=== PATIENT | female | born 1945 | race Caucasian/White ===

== ENCOUNTER 2020-07-05 08:23 | Inpatient (IN) | payer OTHER, MEDICARE ==
[~2020-07-05] VITALS: Ht 160 cm; Wt 70.8 kg
[2020-07-05] VITALS (7 sets, daily range): BP systolic 154–170; BP diastolic 65–79
--- NOTE | 2020-07-05 08:30 | NUR ---
ADDRESS: CORRECT PHONE: [phone] EMPLOYER: RETIRED EMERGENCY CONTACT: JAGDISH BLUNT (SPOUSE) PHONE: [phone] SS: [id number]
[2020-07-05] MEDS ORDERED: MAGNESIUM250 M1 PO (09:11)
[2020-07-05] MEDS ORDERED: NORVASC5 M1 PO (09:12)
[2020-07-05] MEDS ORDERED: HYDRALAZINE 2525 M1 PO (09:13)
[2020-07-05] MEDS ORDERED: METFORMIN HCL500 M3 PO (09:13)
[2020-07-05] MEDS ORDERED: COREG25 M1 PO (09:13)
[2020-07-05 09:14] LABS: HEMATOCRIT 27.8 % (37.0-47.0); HEMOGLOBIN 9.2 gm/dL (12.0-15.0); MCH 27.9 pg (26.0-34.0); MCHC 33.2 g/dL (28.0-37.0); MCV 84.2 fL (80.0-100.0); PLATELET COUNT 152 thou/uL (150-400); RDW 16.9 % (10.5-14.5); WBC 7.8 thou/uL (4.0-11.0)
[2020-07-05] MEDS ORDERED: ZOCOR20 MG PO (09:14)
[2020-07-05] MEDS ORDERED: MELOXICAM15 MG PO (09:14)
[2020-07-05] MEDS ORDERED: MICARDIS HCT 81 EAC1 PO (09:14)
[2020-07-05 09:30] LABS: CALCIUM 8.8 mg/dL (8.5-10.1); CREATININE 1.6 mg/dL (0.6-1.0); POTASSIUM 3.6 mmol/L (3.5-5.1)
[2020-07-05 10:21] LABS: ABSOLUTE NEUTROPHILS 5.5 thou/uL (1.4-8.2); ANISOCYTOSIS SLIGHT; ATYPICAL LYMPHS 1 %; LARGE PLATELETS OCCASIONAL; POIKILOCYTOSIS SLIGHT
[2020-07-05 10:56] LABS: URINE BILIRUBIN NEGATIVE (Negative); URINE BLOOD NEGATIVE (Negative); URINE CLARITY CLEAR; URINE COLOR YELLOW; URINE GLUCOSE-RANDOM* NEGATIVE (Negative); URINE KETONES NEGATIVE (Negative); URINE LEUKOCYTES-REFLEX NEGATIVE (Negative); URINE NITRITE-REFLEX NEGATIVE (Negative); URINE PROTEIN (DIPSTICK) NEGATIVE (Negative); URINE SPECIFIC GRAVITY 1.015 (1.005-1.035); URINE UROBILINOGEN 0.2 E.U./dl (0.2-1.0)
[2020-07-05 12:13] LABS: BE(vivo) -2.2 mmol/L (-2 to +3); HCO3 21.6 mmol/L (22.0-26.0); PCO2 33.5 mmHg (35.0-45.0); PO2 71.5 mmHg (80.0-100.0); pH 7.428 (7.360-7.450); sO2 94.9 % (92.0-98.0)
[2020-07-05 15:14] LABS: % SATURATION 4 % (20-39); IRON 11 ug/dL (50-170); TIBC 301 ug/dL (250-450)
[2020-07-05 15:48] LABS: FOLIC ACID 18.7 ng/mL (8.6-58.9)
--- NOTE | 2020-07-05 19:14 | NUR ---
[age] OLD FEMALE ADMITTED TO WEST ROOM 355. PT WAS BROUGHT INTO THE ER PER DUE TO SOA THAT STARTED FRIDAY. PT ALERT AND ORIENTED TIMES FOUR. VSS, O2 2L. PT DENIES PAIN DURING ADMISSION ASSESSMENT. PT UP TO BSC WITH STANDBY ASSIST. PT TOLERATES MEDS AND DINNER. WILL CONTINUE TO MONITOR.
--- NOTE | 2020-07-05 23:29 | NUR ---
ASSUMED CARE OF PATIENT AT 1900. VSS, AFEBRILE. COVID RESULTS NEGATIVE, CLERICAL ASSIGNER, RAILROAD DESIGN CONSULTANT SHAVING MACHINE OPERATOR, DO LOZANO AND RAVINDER COLLINS NOTIFIED. RECIEVED OK TO TAKE OUT OF ENHANCED PRECAUTIONS. LACTIC ACID ELEVATED. WILL START FLUIDS. WORKING TOWARDS POC GOALS.
[2020-07-06 03:15] VITALS: BP 181/91
[2020-07-06 03:21] VITALS: BP 157/82
[2020-07-06 03:38] LABS: CALCIUM 8.5 mg/dL (8.5-10.1); CREATININE 1.4 mg/dL (0.6-1.0); MAGNESIUM 1.2 mg/dL (1.8-2.4); POTASSIUM 3.9 mmol/L (3.5-5.1)
[2020-07-06 03:41] LABS: ABSOLUTE NEUTROPHILS 4.9 thou/uL (1.4-8.2); BASOPHILS 0.1 % (0.0-2.0); HEMATOCRIT 26.1 % (37.0-47.0); HEMOGLOBIN 8.5 gm/dL (12.0-15.0); LYMPHOCYTES 6.8 % (24.0-44.0); MCH 27.7 pg (26.0-34.0); MCHC 32.6 g/dL (28.0-37.0); PLATELET COUNT 119 thou/uL (150-400); POLYS 91.1 % (36.0-66.0); RBC 3.07 mil/uL (4.20-5.00); RDW 17.3 % (10.5-14.5); WBC 5.4 thou/uL (4.0-11.0)
[2020-07-06 05:07] LABS: GLYCOHEMOGLOBIN (HGB A1C) 7.1 % (4.8-5.6)
[2020-07-06 07:12] VITALS: BP 157/80
--- NOTE | 2020-07-06 10:25 | NUR ---
Assumed care at 0700, assessment and vital signs completed per icu protocol. RN will continue to monitor.
--- NOTE | 2020-07-06 10:56 | NUR ---
INITIAL ASSESSMENT: SW reviewed chart and spoke with nursing. Pt was admitted from home due to shortness of air/pneumonia. Pt placed in Enhanced Isolation to r/o COVID-19. Pt's test is negative. Enhanced Isolation precautions discontinued. Pt to transfer to when a room is available. SW placed call to pt's room multiple times. No answer. SW left voice message on pt's cell phone ([phone]). Per chart, pt is alert/orientated x 4 and lives at home with . Prior to admission, pt was independent with ADLs. Pt is currently on 3L of O2 and IV abx/IV steroids. Pt will need therapy evals when able to participate to assist with recommendations for discharge needs. SW to follow up with pt at a later time and assist with discharge planning.
[2020-07-06 11:20] VITALS: BP 128/65
[2020-07-06 16:15] VITALS: BP 144/74
--- NOTE | 2020-07-06 17:48 | NUR ---
ARRIVED FROM 3W, ALERT AND ORIENTED X4. VSS AND ASSESSMENT CHARTED. AND WILL CONTINUE WITH POC.
[2020-07-06 20:12] VITALS: BP 142/69
[2020-07-07] VITALS (7 sets, daily range): BP systolic 131–179; BP diastolic 65–85
--- NOTE | 2020-07-07 08:16 | NUR ---
PT A&O, UP ADLIB TO BR, VSS, HR SR - ST IV FLUIDS RUNNING IN L AC, NO C/O PAIN, NPO FOR EGD TODAY COARSE COUGH ON 3L/NC SPUTUM CUP AT BEDSIDE, WILL CON'T TO MONITOR PER PPOC.
--- NOTE | 2020-07-07 17:51 | NUR ---
ASSUMED CARE PT SHIFT CHANGE. ASSESSMENTS CHARTED. VSS. DENIES PAIN. O2 SATS WNL ON 3L. PT C/O SOB WITH ACTIVITY. PULM AWARE. EGD CANCELLED, TO BE DONE OUTPATIENT PER GI PHYSICIAN. BLOOD SUGAR ABOVE 500 THIS SHIFT, PHYSICIAN NOTIFED ORDERS RECEIVED. PT UP WITH PHYS THERAPY TOLERATING WELL. HOPEFUL TO DC TOMORROW. DENIES NEEDS AT THIS TIME. WILL CONT TO MONITOR AND FOLLOW POC. WILL PASS ON REPORT TO FILOMENA BECK.
[2020-07-07 22:05] LABS: CALCIUM 8.4 mg/dL (8.5-10.1); CREATININE 1.2 mg/dL (0.6-1.0); POTASSIUM 3.6 mmol/L (3.5-5.1)
[2020-07-08 04:30] VITALS: BP 160/76
--- NOTE | 2020-07-08 04:44 | NUR ---
Assumed pt care at 1900. Pt is alert and oriented. No sign of distress noted in pt. Pt is laying in bed. Pt is complaining about a non-prodictive cough. Denies any pain. Assessment completed and documented. Call light within reach. Scheduled meds administered to pt. No acute events noted. Elevated blood pressure noted. GRAINING OPERATOR notified. No acute events overnight. No further needs at this time. Continue to monitor.
[2020-07-08 07:33] VITALS: BP 159/73
[2020-07-08 11:04] VITALS: BP 136/66
[2020-07-08 15:06] VITALS: BP 133/63
--- NOTE | 2020-07-08 18:03 | NUR ---
RECEIVED PT'S CARE AROUND 0710; PT.ON BED; ALERT; SR ON THE MONITOR; DURING AM ASSESSMENT AOX4; C/O HEADACHE; PRN PAIN MEDICATION GIVEN WITH AM MEDICATIONS; DR. ANJANA OLVERA ON PT.; NOTIFIED ABOUT BG; HOLD PRN INSULIN; MONITORING; EDUCATED ABOUT DRINKING LIQUIDS WITH NO STRAW; PER PHYSICIAN PT. WILL HAVE SWALLOW STUDY ON FRIDAY; 07/10/2020; EDUCATED ABOUT IS; ST. UNDERSTANDING; REACH TO 1000; ABLE TO AMBULATE ONCE FROM ROOM TO CCU DOOR; SOB; EDUCATED ABOUT RESTING IN BETWEEN ACTIVITIES; ASSESSMENT CHARGED; FOLLOWING POC; PASSED ON REPORT;
[2020-07-08 18:24] VITALS: BP 142/66
[2020-07-08 19:29] VITALS: BP 134/57
--- NOTE | 2020-07-08 20:42 | NUR ---
Patient arrived in the unit from at 1835, transferred in bed safely. Vital signs taken. Report given to night RN.
--- NOTE | 2020-07-09 02:06 | NUR ---
ASSUMED CARE OF PT AT 1900. PT IS A/O X4 AND UP AD ELAM. PT WAS CONCERNED WITH O2 LEVEL AT 92%. SCHEDULED BRTX GIVEN. C/O HEADACHE. PRN TYLENOL GIVEN. VSS. HELD BP MEDICATION DUE TO LOW DIASTOLIC NUMBER. PT AT THIS TIME IS CURRENTLY LYING IN HER BED AND APPEARS TO BE SLEEPING. CALLS OUT APPROPRIATELY. PT IS PROGRESSING TOWARDS PLAN OF CARE GOALS. CALL LIGHT IS WITHIN REACH. WILL CONTINUE TO MONITOR.
[2020-07-09 08:44] VITALS: BP 146/66
--- NOTE | 2020-07-09 12:23 | NUR ---
Received awake on bed. Due medication given as prescribed, able to swallow meds w/o difficulty. On room air, may use O2 at 1-2lpm via nasal cannula incase of SOB.
--- NOTE | 2020-07-09 12:36 | NUR ---
Received awake on bed. Due medications given as prescribed, able to swallow meds w/o difficulty. On room air, can use O2 at 1-2lpm via nasal cannula if with shortness of breath. On MS, not on telemetry; no complains of chest pain, crushing sensation and heaviness. With non-productive cough, on breathing treatments. On Mechanically altered diet- tolerating well; no nausea, no vomiting and no abdominal pain noted. Assisted in ADLs. On blood sugar monitoring, taken and recorded accordingly; with sliding scale ordered- given as prescribed. Up ad rina. With SL at L AC- intact and flushing well. A/W physician's rounds to verify re: EGD plans. Pt seen and examined by Dr Bañuelos- patient to have EGD tomorrow; NPO post midnight, physician informed that AM dose of heparin already given since initially plan was to have EGD as outpatient; asked physician to hold medication. Pt informed re: NPO post midnight. Complained of headached, PRN medication given as prescribed. To continue monitoring patient.
[2020-07-09 15:42] VITALS: BP 142/71
[2020-07-09 20:00] VITALS: BP 129/55
--- NOTE | 2020-07-10 02:27 | NUR ---
ASSUMED CARE OF PT AT 1900. PT IS A/O X4 AND IS UP AD ELMA. NO COMPLAINTS OF PAIN OR DISCOMFORT. PT CURRENTLY NPO OF MIDNIGHT AWAITING PROCEDURE IN THE AM. PT IS LYING IN HER BED AT THIS TIME AND APPEARS TO BE SLEEPING. CALL LIGHT IS WITHIN REACH. PT CALLS OUT APPROPRIATELY. WILL CONTINUE TO MONITOR.
[2020-07-10 08:55] VITALS: BP 180/84
--- NOTE | 2020-07-10 13:54 | NUR ---
CARE TEAM INDICATED THAT PT IS TO HAVE EGD IN THE AM. PT IS OFF O2. CM TO FOLLOW INDICATED WITH DC PLANNING.
[2020-07-10 15:03] VITALS: BP 141/64
--- NOTE | 2020-07-10 16:43 | NUR ---
PT A&OX4, VSS, DENIES PAIN. PATIENT EGD RESCHEDULED FOR TOMORROW 07/11. PATIENT HAS COUGH WHEN DRINKING. LUNGS COURSE AT THE BASES. NO SIGNS OF DISTRESS. WILL CONTINUE TO MONITOR.
[2020-07-10 21:34] VITALS: BP 153/67
[2020-07-11 03:05] VITALS: BP 165/76
--- NOTE | 2020-07-11 05:16 | NUR ---
Assumed pt care at 1900. A/OX4,VSS.Pt is up ad rina in room. Does have a congested cough especially after drinking liquids. Denies pain on assessment. Pt has been NPO since midnight for EGD today. Up ad rina in room,encouraged to call as needed for help. Resting quietly w/o distress at this time,will continue to monitor pt.
[2020-07-11 07:18] VITALS: BP 162/70
[2020-07-11] MEDS ORDERED: LEVOFLOXACIN500 MG PO (10:27)
[2020-07-11] MEDS ORDERED: PROTONIX 20 MG20 M1 PO (10:27)
--- NOTE | 2020-07-11 11:44 | HC ---
[facility] [place] [address] CONSULTATION Name: VANDANA BLUNT Room #: 450-P ADM IN M.R.#: [id number] Admission: 07/05/20 Attend Phys: Hubert Krishnamurthy MD Discharge: Date of : 43 Report #: [id number] THIS REPORT FOR: cc: CODY - Family physician unknown CODY - Family physician unknown Gisela Amador MD ~ CC: CODY unknown Hubert Krishnamurthy DATE OF SERVICE: 07/10/2020 ENDOCRINE CONSULTATION NOTE CONSULTING PHYSICIAN: Dr. Krishnamurthy. REASON FOR CONSULTATION: Uncontrolled type 2 diabetes mellitus. HISTORY OF PRESENT ILLNESS: This is a 75-year-old female patient whose medical background is significant for multiple medical issues including type 2 diabetes mellitus, hypertension and hyperlipidemia. She was admitted on 07/05/2020 due to a community-acquired pneumonia. It is worth noting that she has suffered severe pneumonia in December of this year as well. The patient has had type 2 diabetes mellitus for many years and is maintained on metformin 1000 mg b.i.d. She notes fairly good level of control on this metformin monotherapy and recalls that her most recent hemoglobin A1c was at 6.5%. She is not aware of issues pertaining to diabetic retinopathy, diabetic neuropathy, CAD, CHF or CVA. She is not aware of issues pertaining to chronic kidney disease. The patient knows that she is hypertensive and requires the use of multiple antihypertensive agents for adequate blood pressure control. Her medical records indicate that she is maintained on amlodipine 5 mg daily, carvedilol 25 mg b.i.d., hydralazine 25 mg b.i.d., and Micardis HCT 80/25 mg daily. She is also hyperlipidemic and is maintained on simvastatin 20 mg daily. REVIEW OF SYSTEMS: CONSTITUTIONAL: Fatigue, tiredness, minor weight fluctuations, but not fever or chills. HEENT: Negative for sore throat, sinus pain or ear drainage. PULMONARY: Shortness of breath and intermittent cough, but no hemoptysis. CARDIAC: Negative for chest pain, palpitations, syncope or presyncope. GASTROINTESTINAL: Negative for abdominal pain, nausea, vomiting or changes in bowel movement frequency. [facility] [address] [place] [address] CONSULTATION Name: VANDANA BLUNT Room #: 450-P [facility] IN M.R.#: [id number] Admission: 07/05/20 Attend Phys: Hubert Krishnamurthy MD Discharge: Date of : 43 Report #: [id number] NEUROLOGY: Negative for loss of consciousness, seizure activity. DERMATOLOGIC: Negative for skin rash, ulceration, discoloration or other major abnormalities. Otherwise, review of systems noncontributory other than those mentioned in HPI. PAST MEDICAL HISTORY: 1. Type 2 diabetes mellitus. 2. Hypertension. 3. Hyperlipidemia. 4. Recent history of community-acquired pneumonia. 5. Osteoarthritis. OUTPATIENT MEDICATIONS: Magnesium 400 mg daily, amlodipine 5 mg daily, carvedilol 25 mg b.i.d., hydralazine 25 mg b.i.d., metformin 1000 mg b.i.d., simvastatin 20 mg at bedtime, meloxicam daily, telmisartan/hydrochlorothiazide 80/25 mg daily. ALLERGIES: IODINE CONTRAST MATERIAL. FAMILY HISTORY: Noncontributory. SOCIAL HISTORY: The patient is , lives with her , spend 6 months in [place] and 6 months in [place], [place]. She denies use of tobacco, alcohol or illicit drugs. PHYSICAL EXAMINATION: GENERAL: Pleasant female patient who is not in apparent pain or distress. VITAL SIGNS: Blood pressure is 180/84 mmHg, was earlier at 129/55 mmHg, respiration rate 20 per minute, heart rate 83 per minute, temperature 37 degrees Celsius. CONSTITUTIONAL: The patient is sitting upright in bed, appears comfortable, not in apparent distress. HEENT: Anicteric sclerae. Intact extraocular motions. NECK: Supple, without JVD, carotid bruits or lymphadenopathy. I do not appreciate thyromegaly. CHEST: Noted for moderate entry bilaterally with scattered rales, but no wheezes or crackles. HEART: Regular rate and rhythm without murmurs or gallops. ABDOMEN: Soft, lax. No guarding. Active bowel sounds. EXTREMITIES: Lower extremity exam is negative for ankle edema, skin breaks or ulcerations. Pedal pulses are appreciated bilaterally. NEUROLOGIC: Awake, alert and oriented to time, place and person. The remainder of her examination is nonfocal. PSYCHIATRIC: Pleasant, interactive. Normal mood and affect. Normal thought content. [address] [address] CONSULTATION Name: VANDANA BLUNT Room #: 450-P ADM IN M.R.#: [id number] Admission: 07/05/20 Attend Phys: Hubert Krishnamurthy MD Discharge: Date of : 43 Report #: [id number] LABORATORY DATA: Blood glucose values were reviewed since her admission a week ago and had gotten as high as 500 mg/dL and above, but then with the initiation of insulin she went as low as 79 mg/dL. Her most recent blood glucose level was 194 mg/dL prior to this dictation. Sodium 138, potassium 3.6, chloride 106, CO2 of 22, anion gap 10, BUN 30, creatinine 1.2, calcium 8.4, magnesium 1.2. EGFR 44. White blood count 5.4, hemoglobin 8.5, hematocrit 26.1, platelets 119. Hemoglobin A1c 7.1%. Vitamin D is 9.7. ASSESSMENT AND PLAN: 1. Type 2 diabetes mellitus. The patient reports adequate baseline control with metformin monotherapy, albeit at a high dose of 1000 mg b.i.d. The patient had an acute worsening of this control during her hospital stay in the context of severe pneumonia and the need to use IV steroid therapy. This prompted the use of Humalog supplemental scale coverage as well as Lantus insulin 15 units daily with adequate responsiveness. Steroid therapy has been ceased at this point in time. Given the patient's baseline outlook and the cessation of insulin therapy at this point in time, I will quickly taper down her Lantus dose to 8 units in preparation for complete discontinuation as well as maintain her Humalog supplemental scale coverage at a low intensity with the adjustment to not given until it is over 200 mg/dL. Also, I will resume metformin therapy at a low dose of 500 mg b.i.d. and maintain blood glucose monitoring a.c. and at bedtime. Long-term and given the documentation of stage 3 chronic kidney disease, I advised the patient that her metformin dose should be titrated down for safety reasons. I advised that she be maintained on metformin 500 mg b.i.d. The patient explained that she cannot afford branded medicines and I countered that low-dose glipizide therapy would be a cost effective reasonable choice to fill in the gap for the reduced metformin dosage. 2. Hypertension. The patient's level of blood pressure control has fluctuated widely during this hospital stay, but she had been under adequate control for a good part of her hospital stay, she is to continue with the current regimen. 3. Renal insufficiency. The patient's kidney function tests are consistent with stage 3 chronic kidney disease, as noted above, I advised titrating her metformin dose down to 500 mg b.i.d. I stressed the importance of hypertension and diabetes mellitus control towards the preservation of kidney function, which she understands well. 4. Vitamin D deficiency. Severe at 9.6, she will need high dose ergocalciferol therapy at 50,000 International Units weekly for 12 weeks with a plan to follow up her progress following the conclusion of that course. I have reviewed the patient's clinical care notes, laboratory data and other pertinent clinical information for 35 minutes in addition to my encounter time with her. [address] [address] CONSULTATION Name: JOSE RAULVANDANA Room #: 450-P [facility] IN M.R.#: [id number] Admission: 07/05/20 Attend Phys: Hubert Krishnamurthy MD Discharge: Date of : 43 Report #: [id number] I certainly appreciate this consultation by Dr. Krishnamurthy. <ELECTRONICALLY SIGNED> By: Gisela Amador MD 07/11/20 1144 1210 1855 MD lucille Cordero
--- NOTE | 2020-07-11 11:54 | NUR ---
PT IS TO HAVE AN EGD TODAY. DR. YEUNG INDICATED THAT PT MAY BE MEDICALLY STABLE TO DC HOME AFTER EGD IF NO OTHER INTERVENTION IS INDICATED. CM TO FOLLOW INDICATED WITH DC PLANNING. IT IS ANTICPATED THAT PT WILL LIKELY BE MEDICALLY STABLE TO DC HOME TO SELF CARE.
[2020-07-11 12:00] VITALS: BP 146/55
--- NOTE | 2020-07-11 14:02 | NUR ---
Received awake on bed. Due medications given as prescribed, able to swallow meds w/o difficulty; BP meds given with minimal sips of H20. On nothing per orem- pt informed and aware, mouth swabs offered. A+OX4. On MS, not on telemetry; no complains of chest pain, crushing sensation and heaviness. On room air. On blood sugar monitoring- taken and recorded accordingly; with sliding scale insulin ordered-given as prescribed. Continent of bowel and bladder, able to go to the toilet independently. With L AC- SL, resited at L FA; on IV antibiotics. Vital signs stable, with BP elevation noted, BP meds given, BP rechecked and now WNL. Pt scheduled for EGD today, called GI lab re: time; as per GI RN JORGE she will call me back re: time of procedure, consent to be signed, report given. Assisted in ADLs. Pt brought down for EGD via wheelchair, transferred safely. To continue monitoring patient.
[2020-07-11 14:32] VITALS: BP 156/66
[2020-07-11 15:59] VITALS: BP 156/66
[2020-07-11 16:33] VITALS: BP 156/66
--- NOTE | 2020-07-13 17:06 | PATH ---
[facility] [address] [place] [address] PATHOLOGY RPT PROCEDURE Name: YULIYA BLUNT Room #: 450-P DIS IN M.R.#: [id number] Admission: 07/05/20 Date of : 43 Discharge: 07/11/20 Report #: [id number] Path Case #: [id number] [facility] Accession Number: [id number] . 01 Material submitted: . esophagus - RANDOM BX ESOPHAGUS . 01 Clinical history: . R/O EOSINOPHILIC ESOPHAGITIS, DYSPAGIA, SEPSIS, UNSPECIFIED ORGANISM, ACUTE RESPIRATORY FAILURE WITH HYPOXIA . 02 Diagnosis: Squamous mucosa, random esophagus, rule out eosinophilic esophagitis, endoscopic biopsy: - Mild active esophagitis with an occasional eosinophil, changes compatible with reflux esophagitis. - No increase in intraepithelial eosinophils. - Negative for intestinal metaplasia or dysplasia. (IUV:pit 07/13/2020) QTP 07/13/2020 1617 Local . 02 Electronically signed: . Cami Pa MD, Pathologist NPI- [id number] . 01 Gross description: . The specimen is received in formalin, labeled "Yuliya Blunt, random biopsy esophagus, R/O EOE". Received are four segments of pale ramsey soft tissue ranging in size from 0.3 to 0.5 cm in maximum dimensions. The specimen is submitted entirely in cassette A1. (CAA; 07/12/2020) QAC/QA 07/12/2020 1125 Local . 02 Pathologist provided ICD-10: K20.80 . 02 CPT . 822190 Specimen Comment: A courtesy copy of this report has been sent to [phone] Specimen Comment: Report sent to Performed at: [address] [id number] MD Star Tyler MD Phone: [phone] Performed at: [address] [id number] [address] [address] PATHOLOGY RPT PROCEDURE Name: YULIYA BLUNT Room #: 450-P DIS IN M.R.#: [id number] Admission: 07/05/20 Date of : 43 Discharge: 07/11/20 Report #: [id number] Path Case #: [id number] MD Cami Pa MD Phone: [phone]
== END 2020-07-11 17:27 | disposition home or self-care (01) | DRG 871 ==
LOC: ER 08:23 → 3W 12:05 → 2N 07-06 15:31 → 4W 07-08 17:46
PROVIDERS: Emergency Medicine; Nurse Practitioner; Nurse Practitioner Family; ADMIT Internal Medicine; ATTEND Internal Medicine
PROC: 0D758ZZ Dilation of Esophagus, Via Natural or Artificial Opening Endoscopic (ICD-10-PCS; principal; 2020-07-11)
DX: A41.9 Sepsis, unspecified organism (principal); J96.01 Acute respiratory failure with hypoxia; J18.9 Pneumonia, unspecified organism; N17.9 Acute kidney failure, unspecified; E11.9 Type 2 diabetes mellitus without complications; I10 Essential (primary) hypertension; E78.5 Hyperlipidemia, unspecified; M19.90 Unspecified osteoarthritis, unspecified site; K59.00 Constipation, unspecified; R49.0 Dysphonia; E53.8 Deficiency of other specified B group vitamins; E55.9 Vitamin D deficiency, unspecified; Z20.828 Contact with and (suspected) exposure to other viral communicable diseases; D64.9 Anemia, unspecified; Z87.01 Personal history of pneumonia (recurrent); Z79.84 Long term (current) use of oral hypoglycemic drugs; Z79.899 Other long term (current) drug therapy; Z91.041 Radiographic dye allergy status
CPT/HCPCS: 10040; 10045; 10081; 10879; 62110; 62900; 70005